=== PATIENT | female | born 1970 | race Caucasian/White ===

== ENCOUNTER → 2020-06-16 | Outpatient (CLI) | payer BC ==
--- NOTE | 2020-06-22 12:54 | RAD ---
DATE: 06/16/2020 9:55 AM EXAM: MAMMO [facility] SCREENING BILATERAL HISTORY: Screening COMPARISON: 06/05/2019 Bilateral CC and MLO views of the breasts were performed. Bilateral breast tomosynthesis was performed in CC and MLO projections. This study was interpreted with the benefit of Computerized Aided Detection (CAD). FINDINGS: Breast Density: HETERO The breast parenchyma Is heterogeneously dense, which could reduce sensitivity of mammography. Breast parenchyma level C No suspicious masses, microcalcifications or architectural distortion is present to suggest malignancy in either breast. The visualized axillae are unremarkable. IMPRESSION: No mammographic evidence of malignancy. BI-RADS CATEGORY: 1 NEGATIVE RECOMMENDED FOLLOW-UP: 12M 12 MONTH FOLLOW-UP Annual screening mammography is recommended, unless clinically indicated sooner based on symptoms or change in physical exam. PQRS compliance statement: Patient information was entered into a reminder system with a target due date for the next mammogram. Mammography is a sensitive method for finding small breast cancers, but it does not detect them all and is not a substitute for careful clinical examination. A negative mammogram does not negate a clinically suspicious finding and should not result in delay in biopsying a clinically suspicious abnormality. "Our facility is accredited by the [employer] Mammography [employer]."
== END ==
LOC: MAMMO 09:39
PROVIDERS: ATTEND Family Medicine
DX: Z12.31 Encounter for screening mammogram for malignant neoplasm of breast (principal); N64.89 Other specified disorders of breast
CPT/HCPCS: 77063; 77067

== ENCOUNTER → 2021-07-06 | Outpatient (CLI) | payer BC ==
--- NOTE | 2021-07-06 15:41 | RAD ---
Bilateral digital screening 2-D and 3-D (tomosynthesis) mammogram: Reason for examination: Routine screening. Comparison is made to previous study dated 06/16/2020 and 06/05/2019. Bilateral mammograms in CC and oblique projections were obtained with 2-D imaging and 3-D tomosynthes is imaging and reviewed on the workstation. Interpretation was made with the benefit of CAD. Findings: Breast density: Category D. The breasts are extremely dense which lowers sensitivity of mammography. There is a 7 mm oval focal asymmetry in the 9:00 region of the left breast about 4 cm from the nipple at middle depth. This is best seen on the 3-D images (CC slice 31/50 and MLO image 41/53). No other discrete mass is visualized. No malignant appearing calcifications or architectural distortion is see n. Impression: 7 mm focal oval asymmetry in the 9:00 position of the left breast. Further evaluation with a diagnost ic left mammogram and targeted left breast ultrasound is recommended. ASSESSMENT: BI-RADS 0. Incomplete. Recommendations: Diagnostic left mammogram. Targeted left breast ultrasound. The patient will be notified of results and asked to schedule for additional imaging. This patient's information has been entered into a reminder system for the patient to be notified with the results o f her examination and a target date for the next mammogram. Your patient's mammogram demonstrates that she has dense breast tissue (breast density category C or D), which could hide abnormalities, and if she has other risk factors for breast cancer that have bee n identified, she might benefit from supplemental screening tests that may be suggested by you as her ordering physician. Dense breast tissue, in and of itself, is a relatively common condition. Therefo re, this information is not provided to cause undue concern, but rather to raise your awareness and t o promote discussion with your patient regarding the presence of other risk factors, in addition to d ense breast tissue. Electronically signed by: Cynthia Medeiros MD (07/06/2021 3:38 PM) [id number]
== END ==
LOC: MAMMO 11:09
PROVIDERS: ATTEND Family Medicine
DX: Z12.31 Encounter for screening mammogram for malignant neoplasm of breast (principal)
CPT/HCPCS: 77063; 77067

== ENCOUNTER → 2021-07-27 | Outpatient (CLI) | payer BC ==
--- NOTE | 2021-07-27 14:21 | RAD ---
EXAM: 1. Unilateral digital diagnostic mammography, left. 2. Left breast ultrasound. HISTORY: Nodule on mammographic screening. Additional imaging is requested. TECHNIQUE: Unilateral left full field digital images were obtained in CC and MLO projections with spo t compression. Computer-aided detection was applied. Left breast ultrasound was also performed. COMPARISON: 06/16/2020, 07/06/2021. COMPOSITION: C. The breasts are heterogeneously dense, which may obscure small masses. FINDINGS: The nodule of concern in the posterior third medially is not visualized on spot compression without tomosynthesis. Scattered calcifications elsewhere appear benign. There is no clearly suspici ous mammographic finding. Sonography of the left breast was performed from the 9:00-12:00 positions. This reveals a cyst with a thin septation at the 10:00 position 3 cm from the nipple measuring 5 x 3 mm. This likely correspond s with the mammographic finding of concern. There is no suspicious sonographic finding. Images of the left axilla reveal no suspicious lymph nodes. BI-RADS CATEGORY 2: Benign. RECOMMENDATION: 1. Routine screening mammography in one year. If mammography demonstrates dense breast tissue (heterogenously dense or extremely dense, category C or D), which could hide abnormalities, and if other risk factors for breast cancer have been identifi ed, supplemental screening tests that may be suggested by the ordering physician may be of benefit. D ense breast tissue, in and of itself, is a relatively common condition. Therefore, this information i s not provided to cause undue concern, but rather to raise awareness and to promote discussion with t he referring physician regarding the presence of other risk factors, in addition to dense breast tiss ue. The results of this mammography examination is provided to the patient and referring physician. T he patient should contact their referring physician if any questions or concerns exist regarding this report. PQRS compliance statement - Patient information was entered into a reminder system with a target due date for the next mammogram. "Our facility is accredited by the [employer] Mammography [employer]." Electronically signed by: Celio Bradley MD (07/27/2021 2:18 PM) [id number]
== END ==
LOC: MAMMO 13:10
PROVIDERS: ATTEND Family Medicine
DX: N60.02 Solitary cyst of left breast (principal); R92.2 Inconclusive mammogram
CPT/HCPCS: 76642; 77065